=== PATIENT | male | born 1955 | race Caucasian/White ===

== ENCOUNTER 2024-07-13 10:53 | Emergency (ER) | payer OTHER ==
[2024-07-13 11:06] VITALS: BP 138/89; PULSE 81; RESP 17; TEMP 97.7; BMI 24.3
[2024-07-13] MEDS ORDERED: OCULAR LUBRICANT OPHTHALMIC OINTMENT 7 GM TUBE OS PRN (11:41)
== END 2024-07-13 12:07 | disposition home or self-care (01) ==
LOC: JER 10:53
DX: G51.0 Bell's palsy (principal); M26.609 Unspecified temporomandibular joint disorder, unspecified side
CPT/HCPCS: 99283-25